=== PATIENT | female | born 1970 | race Caucasian/White ===

== ENCOUNTER 2017-10-23 21:37 | Observation (INO) | payer OTHER ==
--- OUTSIDE RECORDS SUMMARY | 2017-10-23 21:39 | XMS REPORT | Clinical Summary ---
:1970 Author Organization [facility] Address [address] [place] [address] Care Team Providers Name Role Phone Mariana Finch DO Primary Care Provider Allergies No Known Allergies Current Medications Prescription Sig. Disp. Refills Start Date End Date Status levofloxacin (LEVAQUIN) Take 750 mg by Active 750 MG tablet mouth daily. clindamycin (CLEOCIN) 300 Take 300 mg by Active MG capsule mouth 3 (three) times a day. Active Problems Not on file Family History Medical History Relation Name Comments Hypertension Father Diabetes Mother Relation Name Status Comments Father Alive Mother Alive Social History Tobacco Use Types Packs/Day Years Used Date Never Smoker Alcohol Use Drinks/Week oz/Week Comments Yes 3 Standard drinks or equivalent Sex Assigned at Date Recorded Not on file Last Filed Vital Signs Not on file Plan of Treatment Health Maintenance Due Date Last Done Comments PAP SMEAR 12/31/1988 INFLUENZA VACCINE 01/29/2018 Results Not on fileafter 10/22/2016 Insurance Payer Benefit Plan / Group Subscriber ID Type Phone Address [facility] x[facility] HMO Home: [id number] [phone] [address]
[2017-10-23] MEDS ORDERED: FAMOTIDINE 20 MG/2 ML VIAL IV ONE (22:22)
[2017-10-23] MEDS ORDERED: ONDANSETRON 4 MG/2 ML VIAL ONE (22:22)
[2017-10-23] MEDS ORDERED: NA CHLORIDE 0.9% 1,000 ML ONE (22:23)
[2017-10-23 22:26] LABS: Urine Blood NEGATIVE (NEG); Urine Glucose NEGATIVE (NEG); Urine Protein TRACE (NEG); Urine Specific Gravity >1.030 (1.005-1.030)
--- NOTE | 2017-10-23 22:32 | RAD REPORT ---
EXAM DESCRIPTION: US - Abdomen Exam Limited - 10/23/2017 10:24 pm CLINICAL HISTORY: Abdominal pain. COMPARISON: None. FINDINGS: The gallbladder demonstrates no gallstones. No pericholecystic fluid or gallbladder wall t hickening. The common bile duct is normal measuring 2 mm. The liver demonstrates no findings of intrahepatic biliary dilatation. IMPRESSION: Unremarkable examination.
[2017-10-23 22:50] LABS: Absolute Lymphocytes (CBC) 1.5 K/uL (0.7-4.9); Absolute Monocytes 0.7 K/uL (0.1-1.3); Absolute Neutrophil 10.7 K/uL (1.8-8.0); Basophils % 0.3 % (0-1.3); Eosinophils % 0.5 % (0-4.4); Hematocrit 39.9 % (36.0-45.0); Lymphocytes % 11.5 % (15.3-44.8); MCH 21.5 pg (27.0-35.0); MCV 69.1 fL (80-100); MPV 8.9 fL (7.6-11.3); Monocytes % 5.4 % (3.3-12.3); RBC Red Blood Cell Count 5.78 M/uL (3.86-4.86)
[2017-10-23 22:55] LABS: Protime INR 0.97
[2017-10-23 23:03] LABS: Potassium 3.9 mEq/L (3.6-5.0)
[2017-10-23 23:10] LABS: Albumin 4.5 g/dL (3.2-5.5); Bilirubin Direct 0.1 mg/dL (0-0.2); Bilirubin Total 0.4 mg/dL (0.3-1.2); Protein, Total 8.2 g/dL (6.0-8.3)
[2017-10-23 23:11] LABS: CKMB Creatine Kinase MB 1.9 ng/ml (0.3-4.0)
[2017-10-23 23:26] LABS: Blood Morphology Comment NOTED (NOT SEEN); Hypochromasia 1+; Platelet Estimate ADEQ; Urine White Blood Cell Casts OK
[2017-10-24] MEDS ORDERED: ONDANSETRON 4 MG/2 ML VIAL ONE (00:18)
--- NOTE | 2017-10-24 01:37 | ER ---
Nurse's Notes [facility] Name: Doretha Poole Age: 47 yrs Sex: Female : 1970 Arrival Date: 10/23/2017 Time: 21:40 Bed 7 Private MD: Diagnosis: Abdominal tenderness;Other intestinal obstruction-low grade partial;Vomiting Presentation: 10/23 21:59 Presenting complaint: Patient states: Reports upper abdominal pain that started at 1800 aj today that started during dinner. Patient reports vomiting x 10 episodes. 22:00 Transition of care: patient was not received from another setting of care. Onset of aj symptoms was October 23, 2017. Initial Sepsis Screen: Does the patient meet any 2 criteria? No. Patient's initial sepsis screen is negative. Does the patient have a suspected source of infection? No. Patient's initial sepsis screen is negative. Care prior to arrival: None. 22:00 Method Of Arrival: Ambulatory aj 22:00 Acuity: AMPARO 3 aj Triage Assessment: 22:01 General: Appears in no apparent distress. uncomfortable, Behavior is calm, cooperative, aj appropriate for age. Pain: Complains of pain in epigastric area and right upper quadrant Pain currently is 10 out of 10 on a pain scale. Neuro: Level of Consciousness is awake, alert, obeys commands, Oriented to person, place, time, situation, Appropriate for age. Respiratory: Airway is patent Respiratory effort is even, unlabored, Respiratory pattern is regular, symmetrical. GI: Reports upper abdominal pain, nausea. GI: Reports vomiting. Derm: Skin is intact, is healthy with good turgor, Skin is pink, warm \\T\\ dry. normal. 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 - Social history:: Smoking status: Patient/guardian denies using tobacco. - Family history:: not pertinent. Screenin:09 Abuse screen: Denies threats or abuse. Denies injuries from another. Nutritional ak1 screening: No deficits noted. Tuberculosis screening: No symptoms or risk factors identified. Fall Risk None identified. Assessment: 22:08 General: Appears in no apparent distress. Behavior is calm, cooperative. Pain: ak1 Complains of pain in epigastric area. Neuro: No deficits noted. Cardiovascular: No deficits noted. Respiratory: No deficits noted. GI: Bowel sounds present X 4 quads. Reports upper abdominal pain, epigastric pain, nausea, vomiting, since 1800 while eating dinner. GI: no vomiting noted in ER at this time. : No signs and/or symptoms were reported regarding the genitourinary system. EENT: No signs and/or symptoms were reported regarding the EENT system. Derm: No signs and/or symptoms reported regarding the dermatologic system. Musculoskeletal: No signs and/or symptoms reported regarding the musculoskeletal system. 22:43 Reassessment: Patient appears in no apparent distress at this time. No changes from ak1 previously documented assessment. Patient is alert, oriented x 3, equal unlabored respirations, skin warm/dry/pink. pt drinking oral contrast. pt will contact RN once contrast is finished. pt with hx gastric sleeve and can only hold "so much liquid at one time" pt will call once her threshold is reached. GI: Abdomen is round. 23:10 Reassessment: pt finished as much of contract as she can tolerate. commercial service technician contacted, ak1 ERP notified. 23:58 Reassessment: Patient appears in no apparent distress at this time. No changes from ak1 previously documented assessment. pt resting with eyes closed. resp even and unlabored. pt family at bedside. will continue to monitor. 10/24 00:21 Reassessment: pt c/o nausea, ERP notified with new verbal orders given. ak1 00:28 Reassessment: pt transported to CT via wheelchair. ak1 01:46 Reassessment: Patient appears in no apparent distress at this time. No changes from ak1 previously documented assessment. Patient is alert, oriented x 3, equal unlabored respirations, skin warm/dry/pink. pt and informed of admission status. Vital Signs: 10/23 22:01 BP 142 / 84; Pulse 90; Resp 20; Temp 97.6; Pulse Ox 97% on R/A; Weight 90.72 kg; Height aj 5 ft. 4 in. (162.56 cm); Pain 10/10; 10/24 00:13 BP 160 / 91 LA Supine (auto/reg); Pulse 73; Resp 16; Temp 98.; Pulse Ox 97% on R/A; ak1 Pain 3/10; 01:12 BP 164 / 86; Pulse 71; Resp 18; Temp 98.; Pulse Ox 99% on R/A; Pain 3/10; ak1 01:52 BP 130 / 74; Pulse 70; Resp 16; Temp 98; Pulse Ox 100% on R/A; Pain 2/10; ak1 03:14 BP 128 / 64; Pulse 78; Resp 16; Temp 98; Pulse Ox 100% on R/A; Pain 2/10; ak1 10/23 22:01 Body Mass Index 34.33 (90.72 kg, 162.56 cm) ED Course: 10/23 21:40 Patient arrived in ED. al2 22:01 Triage completed. aj 22:01 Arm band placed on right wrist. Patient placed in waiting room, Patient notified of wait time. 22:07 Ratna Higgins, RN is Primary Nurse. ak1 22:08 Jd Alonso MD is Attending Physician. felicita 22:09 Patient has correct armband on for positive identification. Bed in low position. Call ak1 light in reach. Side rails up X 1. Pulse ox on. NIBP on. 22:24 US Abdomen Limited In Process Unspecified. EDMS 22:30 X-ray completed. Portable x-ray completed in exam room. Patient tolerated procedure kc2 well. 22:30 XRAY Chest (1 view) In Process Unspecified. EDMS 10/24 00:43 CT Abd/Pelvis - W/Contrast In Process Unspecified. EDMS 01:34 Rahda Mallory MD is Hospitalizing Provider. felicita 01:47 Patient admitted, IV remains in place. ak1 01:48 No provider procedures requiring assistance completed. ak1 Administered Medications: 10/23 22:38 Drug: Zofran 4 mg Route: IVP; Site: right antecubital; ak1 23:40 Follow up: Response: No adverse reaction ak1 22:38 Drug: NS 0.9% 1000 ml Route: IV; Rate: 1 bolus; Site: right antecubital; ak1 10/24 00:38 Follow up: IV Status: Completed infusion ak1 10/23 22:38 Drug: Pepcid 20 mg Route: IVP; Site: right antecubital; ak1 23:40 Follow up: Response: No adverse reaction ak1 10/24 00:37 Follow up: Response: No adverse reaction ak1 00:20 Drug: Zofran 4 mg Route: IVP; Site: right antecubital; ak1 00:38 Follow up: Response: No adverse reaction ak1 01:45 Drug: Cipro 400 mg Volume: 200 ml; Route: IVPB; Infused Over: 60 mins; Site: right ak1 antecubital; 03:09 Follow up: IV Status: Completed infusion ak1 01:45 Drug: Flagyl 500 mg Volume: 100 ml; Route: IVPB; Rate: 200 ml/hr; Infused Over: 30 ak1 mins; Site: right antecubital; 03:09 Follow up: IV Status: Completed infusion ak1 Outcome: 01:36 Decision to Hospitalize by Provider. felicita 01:47 Condition: stable ak1 01:47 Instructed on the need for admit. 03:15 Admitted to Med/surg accompanied by tech, via wheelchair, room 220, with chart, Report ak1 called to Harper RODRIGUEZ 03:30 Patient left the ED. ak1 Signatures: Dispatcher [employer] EDChristin Jefferson RN RN aj Anderson, Corey, MD MD cha Krenek, Amber, RN RN ak1 Carr, Kelsie kc2 Love, Angelica al2 Corrections: (The following items were deleted from the chart) 00:21 00:13 Pulse 73bpm; Resp 16bpm; Pulse Ox 97% RA; Temp 98.F; Pain 3/10; ak1 ak1 01:53 01:46 BP 164 / 86; Pulse 71bpm; Resp 18bpm; Pulse Ox 99% RA; Temp 98.F; Pain 3/10; ak1 ak1
--- NOTE | 2017-10-24 01:37 | EDPHYS ---
Physician Documentation [facility] Name: Doretha Poole Age: 47 yrs Sex: Female : 1970 Arrival Date: 10/23/2017 Time: 21:40 Bed 7 Private MD: ED Physician Jd Alonso HPI: 10/24 00:42 This 47 yrs old Female presents to ER via Ambulatory with complaints of felicita Nausea/Vomiting/Diarrhea, Abdominal Pain. 00:42 The patient presents to the emergency department with nausea, vomiting, abdominal pain, felicita of the epigastric area, right upper quadrant and left upper quadrant. Onset: The symptoms/episode began/occurred 1 day(s) ago. Possible causes: unknown. The symptoms are aggravated by food , The symptoms are alleviated by nothing. remaining still. Associated signs and symptoms: The patient has no apparent associated signs or symptoms. Severity of symptoms: At their worst the symptoms were mild in the emergency department the symptoms are unchanged. The patient has not experienced similar symptoms in the past. 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 - Social history:: Smoking status: Patient/guardian denies using tobacco. - Family history:: not pertinent. ROS: 10/24 00:42 Constitutional: Negative for fever, chills, and weight loss, Eyes: Negative for injury, felicita pain, redness, and discharge, ENT: Negative for injury, pain, and discharge, Neck: Negative for injury, pain, and swelling, Cardiovascular: Negative for chest pain, palpitations, and edema, Respiratory: Negative for shortness of breath, cough, wheezing, and pleuritic chest pain, Back: Negative for injury and pain, : Negative for injury, bleeding, discharge, and swelling, MS/Extremity: Negative for injury and deformity, Skin: Negative for injury, rash, and discoloration, Psych: Negative for depression, anxiety, suicide ideation, homicidal ideation, and hallucinations. Abdomen/GI: Positive for abdominal pain, nausea and vomiting, diarrhea, of the right upper quadrant, left upper quadrant, right lower quadrant and left lower quadrant. Exam: 00:44 Constitutional: This is a well developed, well nourished patient who is awake, alert, felicita and in no acute distress. Head/Face: Normocephalic, atraumatic. Eyes: Pupils equal round and reactive to light, extra-ocular motions intact. Lids and lashes normal. Conjunctiva and sclera are non-icteric and not injected. Cornea within normal limits. Periorbital areas with no swelling, redness, or edema. ENT: Nares patent. No nasal discharge, no septal abnormalities noted. Tympanic membranes are normal and external auditory canals are clear. Oropharynx with no redness, swelling, or masses, exudates, or evidence of obstruction, uvula midline. Mucous membranes moist. Neck: Trachea midline, no thyromegaly or masses palpated, and no cervical lymphadenopathy. Supple, full range of motion without nuchal rigidity, or vertebral point tenderness. No Meningismus. Chest/axilla: Normal chest wall appearance and motion. Nontender with no deformity. No lesions are appreciated. Cardiovascular: Regular rate and rhythm with a normal S1 and S2. No gallops, murmurs, or rubs. Normal PMI, no JVD. No pulse deficits. Respiratory: Lungs have equal breath sounds bilaterally, clear to auscultation and percussion. No rales, rhonchi or wheezes noted. No increased work of breathing, no retractions or nasal flaring. Back: No spinal tenderness. No costovertebral tenderness. Full range of motion. Female : Normal external genitalia. Skin: Warm, dry with normal turgor. Normal color with no rashes, no lesions, and no evidence of cellulitis. MS/ Extremity: Pulses equal, no cyanosis. Neurovascular intact. Full, normal range of motion. Neuro: Awake and alert, GCS 15, oriented to person, place, time, and situation. Cranial nerves II-XII grossly intact. Motor strength 5/5 in all extremities. Sensory grossly intact. Cerebellar exam normal. Normal gait. Psych: Awake, alert, with orientation to person, place and time. Behavior, mood, and affect are within normal limits. 00:44 Abdomen/GI: Inspection: abdomen appears normal, Bowel sounds: normal, Palpation: mild abdominal tenderness, in the right upper quadrant and left upper quadrant, Liver: no appreciated palpable abnormalities, Hernia: not appreciated. Vital Signs: 10/23 22:01 BP 142 / 84; Pulse 90; Resp 20; Temp 97.6; Pulse Ox 97% on R/A; Weight 90.72 kg; Height aj 5 ft. 4 in. (162.56 cm); Pain 04/09; 10/24 00:13 BP 160 / 91 LA Supine (auto/reg); Pulse 73; Resp 16; Temp 98.; Pulse Ox 97% on R/A; ak1 Pain 3/; 01:12 BP 164 / 86; Pulse 71; Resp 18; Temp 98.; Pulse Ox 99% on R/A; Pain 3/10; ak1 01:52 BP 130 / 74; Pulse 70; Resp 16; Temp 98; Pulse Ox 100% on R/A; Pain 2/10; ak1 03:14 BP 128 / 64; Pulse 78; Resp 16; Temp 98; Pulse Ox 100% on R/A; Pain 2/10; ak1 10/23 22:01 Body Mass Index 34.33 (90.72 kg, 162.56 cm) aj MDM: 10/23 22:08 Patient medically screened. [facility] 10/24 00:45 Data reviewed: vital signs, nurses notes, lab test result(s), EKG, radiologic studies, [facility] CT scan, plain films. 10/23 22:10 Order name: Basic Metabolic Panel; Complete Time: 00:32 [facility] 10/23 22:10 Order name: BNP; Complete Time: 00:32 [facility] 10/23 22:10 Order name: CBC with Diff; Complete Time: 00: [facility] 10/23 22:10 Order name: Ckmb; Complete Time: 00:32 [facility] 10/23 22:10 Order name: CPK; Complete Time: 00:32 [facility] 10/23 22:10 Order name: LFT's; Complete Time: 00:32 [facility] 10/23 22:10 Order name: Magnesium; Complete Time: 00:32 [facility] 10/23 22:10 Order name: PT-INR; Complete Time: 00:32 [facility] 10/23 22:10 Order name: Ptt, Activated; Complete Time: 00:32 [facility] 10/23 22:10 Order name: Troponin (emerg Dept Use Only); Complete Time: 00:32 [facility] 10/23 22:10 Order name: Lipase; Complete Time: 00:32 [facility] 10/23 22:10 Order name: Urine Culture [facility] 10/23 22:19 Order name: Urine Dipstick--Ancillary (enter results); Complete Time: 00:32 em1 10/23 23:02 Order name: CBC Smear Scan; Complete Time: 00:32 EDME 10/23 22:00 Order name: US Abdomen Limited; Complete Time: 00:32 10/23 22:10 Order name: XRAY Chest (1 view) [facility] 10/23 22:10 Order name: EKG; Complete Time: 22:11 [facility] 10/23 22:10 Order name: Cardiac monitoring; Complete Time: 22:38 [facility] 10/23 22:10 Order name: EKG - Nurse/Tech; Complete Time: 22:26 [facility] 10/23 22:10 Order name: IV Saline Lock; Complete Time: 22:38 [facility] 10/23 22:10 Order name: Labs collected and sent; Complete Time: 22:39 [facility] 10/23 22:10 Order name: CT Abd/Pelvis - W/Contrast [facility] 10/24 01:41 Order name: Abdomen W Erect [facility] 10/24 01:41 Order name: CONS Physician Consult [facility] 10/23 22:10 Order name: O2 Per Protocol; Complete Time: 22:19 [facility] 10/23 22:10 Order name: O2 Sat Monitoring; Complete Time: 22:19 [facility] 10/23 22:10 Order name: Urine Dipstick-Ancillary (obtain specimen); Complete Time: 22:18 [facility] Administered Medications: 10/23 22:38 Drug: Zofran 4 mg Route: IVP; Site: right antecubital; ak1 23:40 Follow up: Response: No adverse reaction ak1 22:38 Drug: NS 0.9% 1000 ml Route: IV; Rate: 1 bolus; Site: right antecubital; ak1 10/24 00:38 Follow up: IV Status: Completed infusion ak 10/23 22:38 Drug: Pepcid 20 mg Route: IVP; Site: right antecubital; ak1 23:40 Follow up: Response: No adverse reaction ak1 10/24 00:37 Follow up: Response: No adverse reaction ak1 00:20 Drug: Zofran 4 mg Route: IVP; Site: right antecubital; ak1 00:38 Follow up: Response: No adverse reaction ak1 01:45 Drug: Cipro 400 mg Volume: 200 ml; Route: IVPB; Infused Over: 60 mins; Site: right ak1 antecubital; 03:09 Follow up: IV Status: Completed infusion ak1 01:45 Drug: Flagyl 500 mg Volume: 100 ml; Route: IVPB; Rate: 200 ml/hr; Infused Over: 30 ak1 mins; Site: right antecubital; 03:09 Follow up: IV Status: Completed infusion ak1 Disposition: 10/24/17 01:36 Hospitalization ordered by Radha Mallory for Inpatient Admission. Preliminary diagnosis are Abdominal tenderness, Other intestinal obstruction - low grade partial, Vomiting. - Bed requested for Telemetry/MedSurg (Inpatient). - Status is Inpatient Admission. ak1 - Condition is Fair. - Problem is new. - Symptoms have improved. UTI on Admission? Yes Signatures: Dispatcher [employer] Gema Bennett RN RN kl Myers, Amanda, RN RN aj Anderson, Corey, MD MD cha Krenek, Amber, RN RN ak1
[2017-10-24] MEDS ORDERED: CIPROFLOXACIN 400mg IV 400 MG/200 ML BAG IV ONE (01:38)
[2017-10-24] MEDS ORDERED: METRONIDAZOLE 500mg IVPB 500 MG/100 ML BAG IV ONE (01:38)
[2017-10-24] MEDS ORDERED: NA CHLORIDE 0.9% 1,000 ML IV SCH (02:00)
[2017-10-24] MEDS ORDERED: ACETAMINOPHEN 500 MG TAB PO PRN (02:48)
[2017-10-24] MEDS ORDERED: ONDANSETRON 4 MG/2 ML VIAL IV PRN (02:48)
[2017-10-24] MEDS ORDERED: MAGNESIUM HYDROXIDE 8% 30 ML PO PRN (02:48)
[2017-10-24] MEDS ORDERED: ACETAMINOPHEN 650MG/RECT SUPP RECT PRN (02:48)
[2017-10-24] MEDS ORDERED: METRONIDAZOLE 500mg IVPB 500 MG/100 ML BAG IV SCH (06:00)
--- NOTE | 2017-10-24 08:25 | RAD REPORT ---
EXAM DESCRIPTION: RAD - Chest Single View - 10/23/2017 10:32 pm CLINICAL HISTORY: Chest and upper abdomen pain COMPARISON: None. FINDINGS: Portable technique limits examination quality. The lungs are grossly clear. The heart is normal in size. No displaced fractures. IMPRESSION: No acute intrathoracic process suspected.
--- NOTE | 2017-10-24 08:51 | RAD REPORT ---
EXAM DESCRIPTION: CTAbdomen Pelvis W Contrast - 10/24/2017 6:45 am CLINICAL HISTORY: Abdominal pain. COMPARISON: None. TECHNIQUE: Biphasic CT imaging of the abdomen and pelvis was performed with 100 ml non-ionic IV cont rast. All CT scans are performed using dose optimization technique as appropriate and may include automated exposure control or mA/KV adjustment according to patient size. FINDINGS: The lung bases are clear.Sleeve gastrectomy changes noted. The liver, spleen, pancreas, adrenal glands and kidneys are within normal limits. No bowel obstruction, free air, free fluid or abscess. Mildly prominent small bowel loops are noted. The appendix is normal. No evidence of significant lymphadenopathy. No suspicious bony findings. IMPRESSION: Mild small bowel ileus or enteritis pattern is suspected. A small bowel bowel obstructio n is not likely. Follow-up radiographs would be advised if patient's symptomology persists or progres ses.
[2017-10-24] MEDS ORDERED: CIPROFLOXACIN 400mg IV 400 MG/200 ML BAG IV SCH (09:00)
[2017-10-24] MEDS ORDERED: FAMOTIDINE 20 MG/2 ML VIAL IV SCH (09:00)
[2017-10-24] MEDS ORDERED: ENOXAPARIN 30 MG/0.3 ML SQ SCH (09:00)
--- NOTE | 2017-10-24 09:05 | RAD REPORT ---
EXAM DESCRIPTION: RAD - Abdomen W Erect - 10/24/2017 7:21 am CLINICAL HISTORY: Pain COMPARISON: CT study 10/24/2017 FINDINGS: The bowel gas pattern is non-obstructive. No evidence of free air or pneumatosis. Contrast has passed into the colon from recent CT. No pathologic calcifications. IMPRESSION: No evidence of a significant SBO.
--- NOTE | 2017-10-24 09:27 | P.SSS ---
Patient History Date of Service: 10/24/17 Reason for admission: Questionable small-bowel obstruction History of Present Illness: Patient is a 47-year-old female came into the hospital with abdominal pain. She also had intractable nausea and vomiting. Patient has a history of gastric sleeve and a tummy tuck. She was concerned about the degree of pain so she came into the hospital for evaluation. In the emergency room an abdominal x- ray revealed partial small-bowel obstruction. Patient was admitted to the hospital for further evaluation. Patient is feeling better when I saw her. She states her pain has subsided and her nausea and vomiting has resolved. We went ahead and ordered a CT scan which did not show a small-bowel obstruction. At this time will go ahead and start her on a diet and possible discharge home. Allergies No Known Allergies Allergy (Verified 10/24/17 03:29) Home Medications: Ondansetron [Zofran] 4 mg PO Q6H PRN #10 tab 10/24/17 - Past Medical/Surgical History Has patient received pneumonia vaccine in the past: No Diabetic: No -: Obesity -: hysterectomy -: gastric sleeve -: tummy tuck - Family History Father -: Heart disease, Hypertension Mother -: Heart disease, Diabetes - Social History Smoking Status: Never smoker Alcohol use: Yes CD- Drugs: No Caffeine use: Yes Place of Residence: Home Review of Systems 10-point ROS is otherwise unremarkable Physical Examination - Vital Signs Temperature: 98.5 F Blood Pressure: 154/68 Pulse: 69 Respirations: 18 Pulse Ox (%): 99 - Physical Exam General: Alert, In no apparent distress, Oriented x3 HEENT: Atraumatic, PERRLA, Mucous membr. moist/pink, EOMI, Sclerae nonicteric Neck: Supple, 2+ carotid pulse no bruit, No LAD, Without JVD or thyroid abnormality Respiratory: Clear to auscultation bilaterally, Normal air movement Cardiovascular: Regular rate/rhythm, Normal S1 S2, No murmurs Gastrointestinal: Normal bowel sounds, Soft and benign, Non-distended, No tenderness Musculoskeletal: No clubbing, No swelling, No tenderness Integumentary: No rashes Neurological: Normal gait, Normal speech, Normal strength at 5/5 x4 extr, Normal tone, Sensation intact, Cranial nerves 3-12 intact, Normal affect Lymphatics: No axilla or inguinal lymphadenopathy - Studies Laboratory Data (last 24 hrs) 10/23/17 22:35: PT 11.4, INR 0.97, APTT 25.8 10/23/17 22:35: WBC 13.0 H, Hgb 12.4, Hct 39.9, Plt Count 271 10/23/17 22:35: B-Natriuretic Peptide 23 10/23/17 22:35: Sodium 137, Potassium 3.9, BUN 23 H, Creatinine 0.70, Glucose 133 H, Magnesium 2.0, Total Bilirubin 0.4, AST 45 H, ALT 45, Alkaline Phosphatase 77, Lipase 35 - Diagnosis (Problem(s)) (1) Enteritis Current Visit: Yes Status: Acute (2) Partial obstruction of small intestine Current Visit: Yes Status: Acute Treatment Summary: Patient will get started on a diet. Will encourage her to ambulate. As long as patient has flatus tolerates her diet she should be stable for discharge home. Will discuss with General surgery regarding plan of care and if they are agreeable and patient will proceed with discharge home. Will discharge her with some anti emetics & outpatient follow-up. - Disposition Disposition: ROUTINE DISCHARGE Condition: GOOD Patient Discharge Instructions: OK TO DC IV AND DC HOME IF TO;ERATES DIET AND OK WITH SURGERY. FOLLOW-UP WITH PRIMARY CARE PROVIDER IN 1-2 WEEKS. FOLLOW-UP WITH GI IN 1-2 WEEKS. RETURN TO THE ER IF SYMPTOMS WORSEN. CALL or TEXT DR. NAGEL AT [phone] IF ANY QUESTIONS REGARDING HOSPITAL STAY. PLEASE CALL THE FLOOR AT [phone] IF ANY MEDICATION OR NURSING QUESTIONS. Diet: Regular Activity: Ad chanda Critical Care: No Time Spent Managing Pts Care (In Minutes): 50
--- NOTE | 2017-10-24 11:33 | CON ---
Date of Consultation: 10/24/2017 Reason For Consultation: Abdominal pain. History Of Present Illness: The patient is a 47-year-old female, who was doing well up until yesterd ay evening, had some frozen chicken pot pie and following which she had crampy abdominal pain associa samuel with nausea, vomiting, is moving her bowels. After being admitted, she was hydrated and she feel s much better. No further diarrhea and no nausea or vomiting. The patient did not experience simila r episodes in the past. No blood in her stool. No dysuria or hematuria. No sore throat, runny nose , cough, headaches, or dizziness. No chest pain. No fever or chills. Review of Systems: Otherwise unremarkable. Past Medical History: None. Past Surgical History: Gastric sleeve surgery, hysterectomy, tummy tuck. Allergies: NONE. Social History: The patient does not smoke. Drinks occasionally. Family History: Significant for diabetes and heart disease. Physical Examination: Vital Signs: Currently are stable. She is afebrile. General: She is awake, alert, and oriented x3. Head and Neck: Cranial nerves 2 through 12 are grossly within normal limits. No neck masses. No JV D. Throat clear. Neck is supple. Chest: Clear. Heart: S1 and S2. Abdomen: Soft, nondistended, nontender. Positive bowel sounds. No peritonitis. Extremities: Adequately perfused. Nontender. Neuro: Nonfocal. Laboratory Data: The official CAT scan report is pending, but preliminary was early bowel obstructio n versus gastroenteritis per [facility]. Abdominal ultrasound was negative. White count is 13,000 wi th a slight left shift. Coags are normal. Chemistries reviewed. There is no acidosis. Assessment: A 47-year-old female with likely gastroenteritis, I doubt bowel obstruction. Recommendation: Continue n.p.o., IV fluid, IV antibiotic. We will check the abdominal x-ray this mo rning. Should there is slow improvement in the bowel gas pattern, we would recommend that we start f eeding her and if she tolerates that, she can be discharged home on oral antibiotics. There is no ks ed for any acute surgical intervention on the patient at this time. /MODL Voice ID: [id number] Report ID: [id number]
--- NOTE | 2017-10-24 15:41 | EKG ---
Test Date: 2017-10-23 Test Time: 22:23:53 Rn Delivery: BYRON MEASUREMENT RESULTS: Intervals: Rate: 75 IL: 188 QRSD: 66 QT: 380 QTc: 424 Whately: P: 23 IL: 188 QRS: -11 T: 34 INTERPRETIVE STATEMENTS: Normal sinus rhythm Normal ECG No previous ECG available for comparison Electronically Signed On 10-24-17 15:37:52 CDT by Brandon Osuna
== END 2017-10-24 12:38 | disposition home or self-care (01) ==
LOC: ER 21:37 → ERHOLD 10-24 01:37 → INTOOBSV 10-24 01:37 → 2ND 10-24 03:08
PROVIDERS: ADMIT Hospitalist; ATTEND Hospitalist
DX: K52.9 Noninfective gastroenteritis and colitis, unspecified (principal); K56.600 Partial intestinal obstruction, unspecified as to cause; Z98.84 Bariatric surgery status
CPT/HCPCS: 36415; 71045; 74019; 74177; 76705; 80048; 80076; 81003; 82550; 82553; 83690; 83735; 83880; 84484; 85025; 85610; 85730; 87077; 87086; 87088; 87186; 93005; 96361; 96365; 96368; 96375; 99285; G0378; J0744; J1650; J2405; J7030; Q9967

== ENCOUNTER 2018-04-27 10:07 | Emergency (ER) | payer OTHER ==
--- OUTSIDE RECORDS SUMMARY | 2018-04-27 10:09 | XMS REPORT | Clinical Summary ---
:1970 Author Organization [facility] Address [address] [place] [address] Care Team Providers Name Role Phone Mariana [...] Health Maintenance Due Date Last Done Comments CERVICAL CANCER SCREENING 12/31/1988 BREAST CANCER SCREENING 12/31/2017 COLON CANCER SCREENING 12/31/2017 SHINGRIX VACCINE (#1) 12/31/2017 INFLUENZA VACCINE 01/29/2018 Results Not on fileafter 04/26/2017 Insurance Payer Benefit Plan / Group Subscriber ID Type Phone Address [employer] OPEN ACCESS/NETWORK xxxxxxxxx HMO Home: [id number] [facility] [address] [phone] [address]
--- NOTE | 2018-04-27 10:49 | ER ---
Nurse's Notes [facility] Name: Doretha Poole Age: 48 yrs Sex: Female : 1970 Arrival Date: 04/27/2018 Time: 10:11 Bed 18 Private MD: Diagnosis: Allergic contact dermatitis Presentation: 04/27 10:17 Presenting complaint: Patient states: pt had eyelash extensions on Sat and had blood sv shot eyes after, swelling to eddie eyes noted, eyelashes removed Saturday, swelling increased on Sat. Pt was seen by her PCP and prescribed Cipro, Tobramycin and Zyrtec. Transition of care: patient was not received from another setting of care. Onset: The symptoms/episode began/occurred suddenly, 3 day(s) ago. Anaphylaxis evaluation, no signs or symptoms of anaphylaxis were noted. Onset of symptoms was April 24, 2018. Care prior to arrival: None. 10:17 Method Of Arrival: Ambulatory sv 10:17 Acuity: AMPARO 4 sv Triage Assessment: 10:17 General: Appears in no apparent distress. uncomfortable, Behavior is calm, cooperative, sv appropriate for age. EENT: Lid(s) redness, swelling, and dryness noted. Neuro: Level of Consciousness is awake, alert, obeys commands, Oriented to person, place, time, situation, Moves all extremities. Full function Gait is steady. Respiratory: Airway is patent Respiratory effort is even, unlabored, Respiratory pattern is regular, symmetrical. Historical: - Allergies: 10:19 No Known Allergies; sv - PMHx: 10:19 None; sv - PSHx: 10:19 gastric sleeve; Hysterectomy; tummy tuck; breast reduction; arm lift; sv - Immunization history:: Flu vaccine is not up to date. - Social history:: Smoking status: Patient/guardian denies using tobacco. - Ebola Screening: : No symptoms or risks identified at this time. Assessment: 11:13 Reassessment: Patient is alert, oriented x 3, equal unlabored respirations, skin aa5 warm/dry/pink. Vital Signs: 10:20 BP 171 / 84; Pulse 77; Resp 16; Temp 98.3; Pulse Ox 100% ; Weight 95.25 kg; Height 5 mh5 ft. 4 in. (162.56 cm); 10:20 Body Mass Index 36.04 (95.25 kg, 162.56 cm) [facility] ED Course: 10:11 Patient arrived in ED. mr 10:19 Triage completed. sv 10:27 Arm band placed on. sv 10:28 [facility]ino [facility]. jr8 10:28 Brendan Cedeño MD is Attending Physician. jr8 10:29 Christin Bender, RN is Primary Nurse. aj Administered Medications: 11:14 Drug: predniSONE 40 mg Route: PO; aa5 11:14 Follow up: Response: Medication administered at discharge. aa5 Outcome: 10:49 Discharge ordered by . jr8 11:13 Discharged to home ambulatory. aa5 11:13 Condition: stable 11:13 Discharge instructions given to patient, Instructed on discharge instructions, follow up and referral plans. medication usage, Demonstrated understanding of instructions, follow-up care, medications, Prescriptions given X 1. 11:14 Patient left the ED. aa5 Signatures: Ysabel Gaming RN RN Christin Bender RN RN aj RachidKaty mr Perkins, Cris RN RN [facility] Edin Marino PA PA Agueda Briseno [facility] Corrections: (The following items were deleted from the chart) 10:32 10:20 Pulse 77bpm; Resp 16bpm; Pulse Ox 100%; Temp 98.3F; 95.25 kg; Height 5 ft. 4 in.; [facility] BMI: 36.0; sv 11:43 11:43 Reassessment: Patient is alert, oriented x 3, equal unlabored respirations, skin aa5 warm/dry/pink. aa5
--- NOTE | 2018-04-27 10:49 | EDPHYS ---
Physician Documentation [facility] Name: Doretha Poole Age: 48 yrs Sex: Female : 1970 Arrival Date: 04/27/2018 Time: 10:11 Bed 18 Private MD: ED Physician Brendan Cedeño HPI: 04/27 11:13 This 48 yrs old Female presents to ER via Ambulatory with complaints of jr8 Allergic Reaction. 11:13 The patient presents with localized swelling, redness of skin. Onset: The jr8 symptoms/episode began/occurred acutely, yesterday. Associated signs and symptoms: The patient has no apparent associated signs or symptoms. Possible causes: fake lashes . At home the patient or guardian has treated the symptoms with nothing. Severity of symptoms: At their worst the symptoms were mild in the emergency department the symptoms are unchanged. The patient has not experienced similar symptoms in the past. The patient has been recently seen by a physician:. 11:14 Patient stated that she had eyelash extensions put on the other day. Had reaction to jr8 them and had them taken off. Stated that it took a couple of days but swelling started to go down. Last night came back worse . Historical: - Allergies: 10:19 No Known Allergies; sv - PMHx: 10:19 None; sv - PSHx: 10:19 gastric sleeve; Hysterectomy; tummy tuck; breast reduction; arm lift; sv - Immunization history:: Flu vaccine is not up to date. - Social history:: Smoking status: Patient/guardian denies using tobacco. - Ebola Screening: : No symptoms or risks identified at this time. ROS: 11:14 Constitutional: Negative for fever, chills, and weight loss. jr8 11:14 Skin: Positive for erythema, swelling, of the right eye and left eye. 11:14 All other systems are negative. Exam: 11:14 Head/Face: Normocephalic, atraumatic. ENT: Nares patent. No nasal discharge, no jr8 septal abnormalities noted. Tympanic membranes are normal and external auditory canals are clear. Oropharynx with no redness, swelling, or masses, exudates, or evidence of obstruction, uvula midline. Mucous membranes moist. Neck: Trachea midline, no thyromegaly or masses palpated, and no cervical lymphadenopathy. Supple, full range of motion without nuchal rigidity, or vertebral point tenderness. No Meningismus. Cardiovascular: Regular rate and rhythm with a normal S1 and S2. No gallops, murmurs, or rubs. Normal PMI, no JVD. No pulse deficits. Respiratory: Lungs have equal breath sounds bilaterally, clear to auscultation and percussion. No rales, rhonchi or wheezes noted. No increased work of breathing, no retractions or nasal flaring. Abdomen/GI: Soft, non-tender, with normal bowel sounds. No distension or tympany. No guarding or rebound. No evidence of tenderness throughout. Back: No spinal tenderness. No costovertebral tenderness. Full range of motion. Skin: Warm, dry with normal turgor. Normal color with no rashes, no lesions, and no evidence of cellulitis. MS/ Extremity: Pulses equal, no cyanosis. Neurovascular intact. Full, normal range of motion. Neuro: Awake and alert, GCS 15, oriented to person, place, time, and situation. Cranial nerves II-XII grossly intact. Motor strength 5/5 in all extremities. Sensory grossly intact. Cerebellar exam normal. Normal gait. 11:14 Eyes: Periorbital structures: erythema, that is mild, bilaterally, swelling, that is mild, bilaterally, Pupils: equal, round, and reactive to light and accomodation, Extraocular movements: intact throughout, Conjunctiva: normal, Corneas: are normal, Sclera: no appreciated abnormality, Anterior chamber: normal, Lids and lashes: edema, bilaterally, erythema, seen bilaterally. Vital Signs: 10:20 BP 171 / 84; Pulse 77; Resp 16; Temp 98.3; Pulse Ox 100% ; Weight 95.25 kg; Height 5 mh5 ft. 4 in. (162.56 cm); 10:20 Body Mass Index 36.04 (95.25 kg, 162.56 cm) 5 MDM: 10:48 Patient medically screened. [facility] 10:48 Data reviewed: vital signs, nurses notes, and as a result, I will discharge patient. jr8 Data interpreted: Pulse oximetry: on room air is 100 %. Interpretation: normal. Counseling: I had a detailed discussion with the patient and/or guardian regarding: the historical points, exam findings, and any diagnostic results supporting the discharge/admit diagnosis, the need for outpatient follow up, a family practitioner, to return to the emergency department if symptoms worsen or persist or if there are any questions or concerns that arise at home. Administered Medications: 11:14 Drug: predniSONE 40 mg Route: PO; aa5 11:14 Follow up: Response: Medication administered at discharge. aa5 Disposition: 04/27/18 10:49 Discharged to Home. Impression: Allergic contact dermatitis. - Condition is Stable. - Discharge Instructions: Contact Dermatitis. - Prescriptions for Prednisone 20 mg Oral Tablet - take 2 tablet by ORAL route once daily for 5 days; 10 tablet. - Medication Reconciliation Form, Thank You Letter, Antibiotic Education, Prescription Opioid Use form. - Follow up: Private Physician; When: 1 week; Reason: If symptoms return, Recheck today's complaints, Continuance of care, Re-evaluation by your physician. - Problem is new. - Symptoms have improved. Addendum: 05/05/2018 11:30 Co-signature as Attending Physician, Brendan Cedeño MD. g s Signatures: Ysabel Gaming RN RN Cris Perkins RN RN aa5 Edin Marino PA PA jr8 Brendan Cedeño MD MD Corrections: (The following items were deleted from the chart) 04/27 11:14 10:49 04/27/2018 10:49 Discharged to Home. Impression: Allergic contact dermatitis. aa5 Condition is Stable. Forms are Medication Reconciliation Form, Thank You Letter, Antibiotic Education, Prescription Opioid Use. Follow up: Private Physician; When: 1 week; Reason: If symptoms return, Recheck today's complaints, Continuance of care, Re-evaluation by your physician. Problem is new. Symptoms have improved. jr8
[2018-04-27] MEDS ORDERED: predniSONE 20 MG TAB ONE (11:17)
== END 2018-04-27 11:14 | disposition home or self-care (01) ==
LOC: ER 10:07
DX: L23.9 Allergic contact dermatitis, unspecified cause (principal)
CPT/HCPCS: 99283; J7512